=== PATIENT | male | born 1950 | race Caucasian/White ===

== ENCOUNTER 2023-11-18 21:37 | Inpatient (IN) | payer MEDICARE, BC, SELFPAY ==
[2023-11-18] VITALS (7 sets, daily range): BP systolic 131–167; BP diastolic 72–87; BMI 28.7
[2023-11-18 17:26] LABS: % Basophils 0.1 % (0-2); % Eosinophils 0.2 % (0-6); % Immature Granulocytes 0.3 % (0-0.5); % Monocytes 7.8 % (1.7-9.3); % Neutrophils 73.6 % (42.2-75.2); Absolute Lymphocytes 1.7 10^3/uL (1.2-3.4); Absolute Monocytes 0.7 10^3/uL (0.1-0.6); Absolute Neutrophils 6.9 10^3/uL (1.4-6.5); Hematocrit 39.5 % (39.0-52.0); Hemoglobin 14.2 g/dL (13.0-18.0); Mean Corp Hgb Conc. 35.9 g/dL (33.0-37.0); Mean Corpuscular Hgb 30.7 pg (27.0-31.0); Mean Corpuscular Volume 85.3 fL (80.0-94.0); Mean Platelet Volume 8.8 fL (7.4-10.4); Nucleated Red Blood Cells % 0 % (-); Platelet Count 221 10^3/uL (130-400); Red Blood Cell Count 4.63 10^6/uL (4.70-6.10); Red Cell Dist. Width 11.9 % (11.5-14.5); White Blood Cell Count 9.4 10^3/uL (4.8-10.8)
[2023-11-18 17:42] LABS: ALT (SGPT) 25 U/L (0-50); AST (SGOT) 37 U/L (17-59); Albumin 4.5 g/dl (3.5-5.0); Alkaline Phosphatase 75 U/L (38-126); Blood Urea Nitrogen 18 mg/dl (9-20); Carbon Dioxide 30 mmol/L (22-30); Chloride 100 mmol/L (98-107); Glucose 111 mg/dl (70-99); Potassium 4.8 mmol/L (3.5-5.1); Sodium 138 mmol/L (135-145); Total Bilirubin 0.7 mg/dl (0.2-1.3); Total Protein 7.1 g/dl (6.3-8.2); eGFR > 60.00
--- NOTE | 2023-11-18 19:30 | ED.GENMED ---
History of Present Illness
General
Chief Complaint: Chest Pain
Time Seen by Provider: 11/18/23 19:30
History of Present Illness
History of Present Illness:
HPI: Nearly 1 week ago, the patient started having a gas pain described as tightness in the chest. He initially thought it could have been diet/GI related. This lasted for a few days. Today, he had some diaphoresis. He has had no exertional
symptoms. He has never been to a stock sheets cleaner inspector other than maybe a stress test 'in my 20s'. Currently he has no discomfort.
EXAM:
GENERAL: Well appearing in no distress
HEENT: Moist oral mucosa
CARDIOVASCULAR: No murmurs, normal heart rate, regular rhythm, No chest wall tenderness
PULMONARY: No respiratory distress, breath sounds are clear and equal
ABDOMEN: Soft with no peritoneal signs, no tenderness
NEUROLOGIC: Excellent strength all extremities, no coordination deficits
PSYCHIATRIC: Appropriate mental status, normal insight and judgement
EXTREMITIES: Nontender, no edema, moves all extremities equally
SKIN: No rash, no lesions
TIME OF INITIAL ENCOUNTER: 7:45 PM
NUMBER AND COMPLEXITY OF PROBLEMS ADDRESSED AT THE ENCOUNTER
� Chronic conditions affecting care: Former smoker, high blood pressure, hyperlipidemia
� Acute Exacerbation and/or Progression of Chronic Illness: This is an acute problem
� Differential Diagnosis includes: ACS, GI etiology, GERD
AMOUNT AND/OR COMPLEXITY OF DATA TO BE REVIEWED AND ANALYZED
� I performed an independent evaluation of and my interpretation is:
EKG: Sinus 48, T wave inversion in lead III, AvF, V4, and V5
CT:
X-rays:
Laboratory Studies: CBC unremarkable, chemistries unremarkable, troponin 1.37 with no old to compare
Other:
� Review of other/old records: I reviewed records, the patient had a colonoscopy in 2017
� Clinical information was obtained by an independent historian: None needed
� Prescriptions/Medications Considered but not given:
� Further testing considered but not performed:
RISK OF COMPLICATIONS AND/OR MORBIDITY OR MORTALITY OF PATIENT MANAGEMENT
� Social determinants of health affecting care: Lives at home with
� Discussion with other providers: Notified Dr. Chadwick of the patient's presentation with abnormal cardiac findings; Dr. العراقي for admission at 7:50 PM
� Escalation of care including admission/observation vs risk of discharge considered: Given the T wave inversion on EKG along with elevated troponin, the patient was given aspirin and will start heparin. No nitroglycerin was
given as he remains chest discomfort free. He currently has no symptoms as of 7:50 PM.
Past History
Past History
ED Past Medical History: HTN and Hypercholesterolemia
ED Past Surgical History: Orthopedic
Social History
Tobacco: Former smoker
Living: with family
Employment: Employed
Phy Exam
Physical Exam
Physical Exam:
See HPI
Scores
Heart Score for Chest Pain Patients
STEMI patient?: Not applicable
Course
Orders/Labs/Results
Orders:
Orders
11/18/23 17:12
Electrocardiogram (*1) Urgent
Reason for Study: Chest Pain
EKG- Treatment ONCE
11/18/23 17:21
Complete Blood Count/With Diff Urgent
Comprehensive Metabolic Panel Urgent
Troponin I Urgent
11/18/23 19:47
Aspirin 325 mg PO NOW STA
Heparin 4,000 units IV NOW STA
11/18/23 19:[address] Non Medication Order As Directed
Physician Order: PTT 6 hours after initial start of Heparin infusion
Above order entered?: Yes
11/18/23 20:18
D-Dimer Urgent
Comment: ADD ON
PTT Urgent
Comment: Obtain baseline before beginning heparin infusion if not already collected
11/18/23 20:34
Admit/Transfer Patient As Directed
Co-Sign Provider:
Level of Care: Inpatient admission
Assign to:: IVU
Physician / Group: Malcom
Diagnosis: ACS
Reason for Hospitalization: ACS
Expected length of stay greater than two midnights?: Yes
ELOS- Estimated Length of Stay in days: 3
I certify the patient meets the requirements for IP care: Yes
PRN Pain Medication Management As Directed
May give lesser potent ordered pain med per pt: Yes
preference::
Protocol:: Medication orders for pain may be administered in a
manner that supports deferring to patient preference
when the pt is:
- Requesting an ordered lesser potent pain medication.
Least to most potent pain medications are defined
as: acetaminophen < NSAID < tramadol < opioids
(morphine, oxycodone, hydromorphone).
- Requesting a lesser dose of the same medication IF
ORDERED.
- Requesting a less intrusive route of administration
if both routes are prescribed by the provider (PO <
IV).
11/18/23 20:35
Code Status As Directed
Resuscitation Status: Full Code
11/18/23 21:30
Heparin 54439 Units/250 ml 25,000 units in 250 ml IV PER PROTOCOL
Weight to be used for heparin protocol in kilograms (kg):: 99
Protocol:: Cardiac Tx/Acute Coronary
PTT Goal Range to be used:: PTT 73 to 111 seconds
Order type:: Initial
INITIAL Infusion Dose (UNITS/KG/hr) & then follow protocol:: 12 units/kg/hr
Infusion Dose in UNITS/hr & then follow protocol (UNITS/hr):: 1,000
INFUSION RATE in mL/hr & then follow protocol (mL/hr):: 10
PTT less than or equal to 64 seconds:: Increase rate by 200 units/hr (+ 2 mL/hr)
PTT 64.1 to 72.9 seconds:: Increase rate by 100 units/hr (+ 1 mL/hr)
PTT 73 to 111 seconds:: Target Range. No change in rate.
PTT 111.1 to 130.9 seconds:: Decrease rate by 100 units/hr (- 1 mL/hr)
PTT 131 to 199.9 seconds:: HOLD for 1 hr. Then decrease rate by 200 units/hr (- 2 mL/hr)
PTT greater than or equal to 200 seconds:: HOLD for 2 hrs & Notify Provider. Then decrease by 200 units/hr (-
2 mL/hr)
Lab follow-up:: Each change, PTT q6h until 2 consecutive are therapeutic. Then PTT
daily.
Abnormal Lab Results
11/18/23 11/18/23
17:21 20:18
RBC 4.63 L 10^6/uL
(4.70-6.10)
Absolute Neuts (auto) 6.9 H 10^3/uL
(1.4-6.5)
Absolute Monos (auto) 0.7 H 10^3/uL
(0.1-0.6)
Lymphocytes % 18.0 L %
(20.5-51.1)
D-Dimer 0.55 H ug/mlFEU
(0.00-0.50)
Glucose 111 H mg/dl
(70-99)
Troponin I 1.370 H* ng/ml
11/18/23 17:21
11/18/23 17:21
Vital Signs
Initial and Last Documented VS:
Initial Vital Signs
Temp Pulse Resp BP Pulse Ox
98.3 F 59 16 167/85 99
11/18/23 17:10 11/18/23 17:10 11/18/23 17:10 11/18/23 17:10 11/18/23 17:10
Last Documented Vital Signs
Temp Pulse Resp BP Pulse Ox
98.3 F 52 23 167/85 95
11/18/23 17:10 11/18/23 19:00 11/18/23 19:00 11/18/23 17:10 11/18/23 19:00
*Critical Care Note
Total Time (30-74mins, 75-104mins- exclusive of procedures): Not Applicable
ED Attending Note
-
Portions of this chart may have been created with voice recognition software.� Occasional wrong word or��sound alike� substitutions may have occurred due to the inherent limitations of voice recognition software.
Discharge Plan
Departure
Patient Disposition: Admit
Date of Disposition: 11/18/23
Time of Disposition: 19:50
Presentation/result/management discussed w/ accepting MD/DO: Hospitalist
Discharge Problem:
Acute coronary syndrome with high troponin
Interventions
Interventions:
*Risk Screen - Suicide Last Done: 11/18/23 18:15
*General Assessment Last Done: 11/18/23 18:15
*Neglect/Abuse Screening Last Done: 11/18/23 18:15
ED- Fall Risk Assessment Last Done: 11/18/23 18:12
*ED COVID-19 Vaccine History Last Done: 11/18/23 18:15
ED- Cardiac Assessment Last Done: 11/18/23 18:12
[2023-11-18] MEDS: HEPARIN 4000 UNITS IV (20:15)
[2023-11-18] MEDS: ASPIRIN 325 MG PO (20:15)
[2023-11-18 20:34] LABS: APTT 28.2 Sec (23.4-35.0)
--- NOTE | 2023-11-18 20:45 | HPS.HSE ---
Addendum entered and electronically signed by Julio العراقي DO 11/18/23 22:01:
Addendum: D-Dimer is very minimally elevated (0.55). Fairly low suspicion of PE with no hypoxemia, tachycardia, etc. Despite recent history of air travel.
Patient is already on therapeutic heparin infusion - so additional testing will not change current management. Continue current treatment / evaluation as outlined below.
Can consider CTA chest, etc at later date if there is greater concern for possible PE.
Original Note:
Family Physician
-
Family Physician: CANDE Coe
Chief Complaint
-
Chest Pain
History of Present Illness
Patient is a 73y M with PMH significant for hypertension who presents to ED complaining of chest pain. Patient states that he first noted some chest discomfort on Wednesday 11/08. He went for a 5 mile hike and felt some discomfort or tightness in
his chest. He initially felt that this was due to indigestion / GI symptoms. He felt fairly well for the following weekend, but noted recurrent discomfort on Sunday and Sunday - specifically after meals. 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 He had no associated symptoms at that time; however, pain reached a peak of about 7/10. He had some intermittent / less severe discomfort over the next few days. He attempted to alter his
diet as he felt symptoms may be due to some food intolerance.
Today, patient had recurrent chest discomfort at home - this time accompanied by nausea, diaphoresis and pale appearance. He had a small, soft BM at home with no change in his symptoms.
He presented to the ED for further evaluation. Currently he is resting comfortably. His chest tightness is much improved - though not fully resolved - currently a 1/10.
Patient denies any prior history of similar symptoms.
Of note: he and his recently returned from a trip to [place] for vacation. Their return flight was 11/05.
Medical History
Past Medical History
Past Medical History: Reports Other
Additional Past Medical History:
Hypertension
Dyslipidemia
Past Surgical History: Reports Other
Additional Past Surgical History:
T&A
Mole Excision
Social History
Tobacco: Smoker (Current some day smoker (very rare pipe or cigar).)
Alcohol: Occasional
Drug: None
Personal:
Living: With Family
Family History
Family History: Other (Mother: PPM, Lung Cancer Father: Lung Cancer, Melanoma)
Allergies / Home Medications
Allergies reflects when Allergies were last updated in [employer].
Home Medications with original date entered in [employer]
Allergy/Medication List:
Allergies
Allergy/AdvReac Type Severity Reaction Status Date / Time
Penicillins Allergy Unknown Verified 11/18/23 17:10
Home Medications
amlodipine 5 mg tablet (Norvasc) 5 mg PO DAILY 11/18/23
cholecalciferol (vitamin D3) 25 mcg (1,000 unit) tablet (Vitamin D3) 25 mcg PO DAILY 11/18/23
losartan 25 mg tablet 25 mg PO DAILY 11/18/23
pravastatin 10 mg tablet 10 mg PO HS 11/18/23
Review of Systems
-
History Source: Patient
A 12 point ROS was completed and negative except as noted: Yes
Constitutional: Denies Fever or Chills
Respiratory: Denies Cough or Trouble Breathing
Cardiac: Reports Chest Pain and Diaphoresis; Denies Palpitations or Syncope
Abdomen/GI: Reports Nausea; Denies Abdominal Pain, Vomiting, Diarrhea or Constipated
: Denies Dysuria, Frequency or Flank Pain
Musculoskeletal: Denies Joint Pain or Edema
Neurological: Denies Dizzy or Headache
Psych: Denies Depression or Anxiety
Physical Exam
Vital Signs
Vital Signs
Temp Pulse Resp BP Pulse Ox
98.3 F 52 23 167/85 95
11/18/23 17:10 11/18/23 19:00 11/18/23 19:00 11/18/23 17:10 11/18/23 19:00
Physical Exam
General: Other (73y M in no acute distress.)
HEENT: Moist mucous membranes and PERRLA
Respiratory: Clear; No Wheezes, Rales or Rhonchi
Cardiac: S1/S2 and Bradycardia; No Murmur
GI: Soft, Non Tender, Non Distended and Normal Bowel Sounds
Musculoskeletal: No Clubbing, No Cyanosis and No Edema
Neuro: AO x 3
Laboratory Results
-
11/18/23 17:21
11/18/23 17:21
Laboratory Results
APTT 28.2 Sec (23.4-35.0) 11/18/23 20:18
Total Bilirubin 0.7 mg/dl (0.2-1.3) 11/18/23 17:21
AST 37 U/L (17-59) 11/18/23 17:21
ALT 25 U/L (0-50) 11/18/23 17:21
Alkaline Phosphatase 75 U/L (38-126) 11/18/23 17:21
Troponin I 1.370 ng/ml H* 11/18/23 17:21
Impression/Plan
-
A/P: Patient is a 73y M with PMH significant for hypertension who presents to ED complaining of chest pain.
Chest Tightness
ACS
- Admit for further evaluation and treatment.
- Symptoms seem likely due to ACS based on history, risk factors, elevated troponin.
- EKG with non-specific ST-T changes - no prior for comparison.
- IV heparin infusion. IV NTG gtt and titrate until pain-free.
- ASA daily. Increase to high intensity statin.
- Follow serial troponin to peak.
- Cardiology consult - for probable ischemic evaluation.
- Follow for any new / worsening symptoms.
- Given recent [place], will also rule out PE. Though patient is not hypoxemic, tachycardic, etc.
- D-Dimer ordered - if positive will add CTA Chest.
Benign Hypertension
- BP somewhat elevated in the ED in the setting of chest discomfort / acute illness.
- Hold amlodipine acutely. Continue losartan with holding parameters.
- IV NTG gtt for now as noted above.
- Adjust med regimen prior to discharge for goal of normotension.
DVT Prophylaxis: On IV Heparin
Code Status: Full
[2023-11-18] MEDS: HEPARIN 25000 UNITS/250 ML IV (21:49)
[2023-11-18 21:57] LABS: D-Dimer 0.55 ug/mlFEU (0.00-0.50)
--- NOTE | 2023-11-18 22:30 | PTCARENOTE ---
Rec'd pt from ER via stretcher on monitor & Hep gtt at 1000 units, pt oriented to IVU routine, Painfree, Pt instructed to call nurse if develops any discomfort,Per Dr العراقي- 'only start the NTG gtt if pt has CP', SR, bp stable, + pulses, no edema,
RA, sat 98, lungs clear, + bowel sounds, no bm, abd soft, nontender, npo except meds, Urinal at bedside
[2023-11-19] VITALS (17 sets, daily range): BP systolic 118–166; BP diastolic 67–98; BMI 28.7
[2023-11-19 04:43] LABS: Blood Urea Nitrogen 15 mg/dl (9-20); Calcium 9.5 mg/dl (8.4-10.2); Carbon Dioxide 26 mmol/L (22-30); Chloride 101 mmol/L (98-107); Estimated Creatinine Clearance 106 ml/min; Glucose 114 mg/dl (70-99); HDL Cholesterol 57 mg/dl; LDL Cholesterol, Calculated 107 mg/dl; Potassium 4.5 mmol/L (3.5-5.1); Sodium 137 mmol/L (135-145); Total Cholesterol 175 mg/dl (50-199); Triglyceride 57 mg/dl (10-149); Very Low Density Lipoprotein 11 mg/dl (0-30); eGFR > 60.00
--- NOTE | 2023-11-19 04:56 | PTCARENOTE ---
ptt 49, hep gtt incr to 1200 units/hr per protocal
--- NOTE | 2023-11-19 07:41 | CON.CAR ---
Addendum entered and electronically signed by Marta Kaur DO 11/19/23 10:00:
I saw and examined the patient.
The Rubber Tubing Splicer's note was reviewed and I agree with the note.
Comment: Patient seen and examined with cardiac PA. 73 year old male with h/o HTN and hyperlipidemia since age 20s on pravastatin and hypertension but who is otherwise been healthy with no prior cardiac evaluation. He is a lifelong non-smoker. No
family history of premature coronary artery disease. He reports new episode of exertional chest tightness/indigestion which started on Sunday while he was walking in [place] with his . He was able to complete a 5 mile walk with
intermittent symptoms throughout. Symptoms resolved with rest. Over this past week he has had recurrent episodes during exercise/exertion. He describes the symptoms as indigestion-like and thought they were due to his diet. Symptoms resolved with
rest. 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 Last night he developed a cold sweat, nausea, pallor after preparing dinner and went to the ER.
Troponin initially 1.3 and EKG showing NSR with T wave inversions inferior leads and V5-V6. He was started on Heparin gtt and ASA. Repeat troponin up to 5.6 this morning. Pt currently chest pain-free.
General: No acute distress, AAOX3
Neck: Negative JVD
Heart: Regular, Negative S3 positive S1/S2, Negative S4, No murmur
Lungs: CTA b/l, negative wheezes/rales/rhonchi
Abd: Positive BS, NT/ND, neg rebound/rigidity/guarding
Ext: Negative cyanosis/clubbing/edema
Neuro: nonfocal
Plan:
Non-STEMI
-Currently chest pain-free
-Continue IV heparin with plan for left heart catheterization today
-Trend CTNI
-Check 2D echocardiogram
-Lipid profile suboptimal on pravastatin. Changed to high intensity atorvastatin
-Goal normotension
-Hyperglycemia�check hemoglobin A1c
Addendum entered and electronically signed by CANDE Matta 11/19/23 08:29:
.
Original Note:
Consultation
Consultation Request
Date/Time Consultation Requested: 11/18/23
Date/Time Consultation Performed: 11/19/23 0730
Requesting Provider: Julio العراقي DO
Performing Provider: CANDE Matta for Marta DO Myesha
Reason for Consultation: chest pain, elevated troponin
Medical History
-
Chief Complaint: chest pain, indigestion
History of Present Illness:
73 year old male with h/o HTN and hyperlipidemia since age 22s who developed chest pain with exertional activities one week ago. Symptoms first occurred during a 5 mile walk one week ago. He describes the symptoms as indigestion-like and thought
they were due to his diet. Symptoms resolved with rest. 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 Last night he developed a cold sweat, nausea, pallor
after preparing dinner and went to the ER. Troponin initially 1.3 and EKG showing NSR with T wave inversions inferior leads and V5-V6. He was started on Heparin gtt and ASA. Repeat troponin up to 5.6 this morning. Pt currently chest pain-free.
PMH:
HTN
hyperlipidemia
Past Medical History
Past Medical History: Other (as above)
Social History
Tobacco: Former Smoker (cigars and pipe smoker, quit 10 yrs ago)
Alcohol: Occasional
Personal:
Living: With Family
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)
Family History
Family History: Other (father with 'heart problems' 60s [place], mother with pacemaker, 60s from [place])
Allergies / Home Medications
Allergy/AdvReac Type Severity Reaction Status Date / Time
Penicillins Allergy Unknown Verified 11/18/23 17:10
�Medication �Instructions �Recorded �Confirmed �Type
amlodipine 5 mg tablet (Norvasc) 5 mg PO DAILY 11/18/23 11/18/23 History
cholecalciferol (vitamin D3) 25 25 mcg PO DAILY 11/18/23 11/18/23 History
mcg (1,000 unit) tablet (Vitamin
D3)
losartan 25 mg tablet 25 mg PO DAILY 11/18/23 11/18/23 History
pravastatin 10 mg tablet 10 mg PO HS 11/18/23 11/18/23 History
Review of Systems
-
History Source: Patient
All other systems: Negative unless noted
Physical Exam
Vital Signs
Temp Pulse Resp BP Pulse Ox
98.7 F 52 18 158/86 98
11/19/23 03:54 11/19/23 06:00 11/19/23 03:54 11/19/23 06:00 11/19/23 06:00
Lab Results
11/18/23 17:21
11/19/23 03:49
Troponin I 5.620 ng/ml H* D 11/19/23 03:49
GEN: No distress, awake, Ox3
HEENT: supple, anicteric, mmm
LUNGS: CTA, no wheezes/rales
CV: Reg, S1/S2, no murmur
ABD: soft, BS+, NT/ND
EXT: No edema
NEURO: Gross non-focal
SKIN: No rash
Impression / Plan
-
PCP:Rosa Maria Frazier
Impression:
NSTEMI
CP w/ exertion x 1 week
troponin trending up
HTN-on Losartan and Amlodipine
hyperlipidemia, LDL 107 on Pravastatin
hyperglycemia
EKG personally reviewed: 11/18/23 1718: SB T wave inversions II, III, V4-V6. Repeat 11/19/23 0600: NSR biphasic T waves III, aVF, TWI V5-V6
telemetry personally reviewed: NSR, 6 beat NSVT
Plan:
will need ischemic evaluation
NPO
continue heparin
ASA
trend troponins to peak
check echo
change to high intensity statin
check HgbA1c
continue outpatient antihypertensives-Losartan, Amlodipine
Data Reviewed
-
EKG: Tracing Personally Visualized and interpreted
[2023-11-19] MEDS: PROTONIX IV 40 MG IV (07:43)
[2023-11-19] MEDS: COZAAR 25 MG PO (07:44)
[2023-11-19] MEDS: NSS (PRESERVATIVE FREE) 10 ML IV (07:45)
[2023-11-19] MEDS: LOW STRENGTH ASPIRIN 81 MG PO (10:08)
[2023-11-19 11:22] LABS: APTT 53.2 Sec (23.4-35.0)
--- NOTE | 2023-11-19 12:46 | CM ---
Chart reviewed. Patient is independent of ADLS, lives with his in a 2 [address], 2 SANDRA, 0 DME. Patient going for a LHC today. Patient currently with no discharge needs. CM to follow
--- NOTE | 2023-11-19 13:01 | PTCARENOTE ---
Patient sent to the orthodontic laboratory technician in the bed, voided pre-procedure
[2023-11-19 14:05] LABS: ACT-LR - POC 215 Seconds (116-155)
[2023-11-19 14:14] LABS: ACT-LR - POC 368 Seconds (116-155)
[2023-11-19 14:35] LABS: ACT-LR - POC 248 Seconds (116-155)
--- NOTE | 2023-11-19 14:43 | ITS.CL.CATH ---
Director Of Casino - Catheterization
Cardiac Catheterization
Procedure Report:
LEFT HEART CATH AND CORONARY INTERVENTION
Date of Procedure: November 19, 2023
Referring: Dr. Marta Kaur
PROCEDURES:
1. Left heart catheterization with coronary and single-plane left ventriculography
2. Successful stenting of 100% occluded mid right coronary artery with a 3.0 x 26 mm Luther stent that was implanted at nominal pressures then postdilated to high pressures with a 3.5 mm noncompliant balloon
INDICATION: This is a 73-year-old gentleman with a past medical history notable for hypertension and hyperlipidemia who reported the onset of exertional chest tightness that was quite severe while he was walking at [facility] with his .
He completed the 5 mile walk with intermittent symptoms throughout. His chest discomfort resolved with rest. Over the past week he experienced recurring episodes of chest tightness with symptoms occurring at rest on the evening of admission. His
troponin initially measured 1.3 ng/mL. He was chest pain-free. His troponin continued to increase slightly currently measuring 6.61 ng/mL. He has remained chest pain-free. He is now referred for coronary angiography. An echocardiogram
precatheterization was notable for preserved left ventricular systolic function
ACCESS: Right radial artery 6 Ghanaian sheath
HEMODYNAMICS (mmHg):
AO (s/d, m) : 144/78, 106
LV (s/d) : 143/8
LVEDP : 20
CORONARY FINDINGS
Dominance: Right
LEFT MAIN: Short and unobstructed
LEFT ANTERIOR DESCENDING: The LAD arises normally from the left main and runs in the anterior interventricular groove. The proximal LAD is a large-caliber vessel. There is a irregular 70-80% stenosis in the proximal-mid LAD near the origin of a
large first septal color artist and small first diagonal branch. The mid LAD has luminal irregularities. The LAD beyond the third diagonal branch has a 40-50% stenosis. The distal vessel becomes quite tortuous and wraps completely around the apex.
CIRCUMFLEX: The circumflex is a medium caliber nondominant vessel with a 50% stenosis in its midportion just before the bifurcation of the circumflex to a large OM1 and OM 2
RIGHT CORONARY: The right coronary artery is a dominant vessel that is noted to be 100% occluded in its midportion. The distal vessel fills via well-developed zliy-[id number] collaterals that fill retrograde and are suggestive of a very short
occluded segment
VENTRICULOGRAPHY: Left ventriculography was performed in an REID projection. The digital single-plane left ventricular ejection fraction is estimated at 60% with posterior basal hypokinesis
ANGIOPLASTY PROCEDURE DETAIL: After review of the diagnostic images and the echocardiogram the decision was made to proceed with percutaneous revascularization of the 100% occluded mid RCA suspecting a large area of viable myocardium given normal
LVEF by ventriculogram and by echocardiogram. Intravenous heparin was administered and the origin of the RCA was cannulated with a 6 Ghanaian JR4 guiding catheter. The occluded segment in the mid RCA proved difficult to cross with a BMW guidewire.
With a little luck the wire did pop across the occluded segment and was advanced to the distal RCA. The tip of the wire could be freely rotated confirming intravascular location of the wire tip. Balloon predilation was performed with a 2.0 x 15 mm
Euphora balloon and was followed by placement of a 3.0 x 26 mm Chappells stent that was implanted at nominal pressures then postdilated with a 3.5 mm noncompliant balloon at 8 eden on the distal edge of the stent and 16-18 eden in the mid and proximal RCA
stent.
RADIATION SUMMARY: Fluoro Time (min): 11.8, Dose (mGy): 1127, DAP (Gy.cm2) : 83.2
CONCLUSIONS
1. Probable recent 100% occlusion of the mid right coronary artery with a distal vessel filling via [id number] collaterals. Successful angioplasty and stenting of the occluded mid RCA with a 3.0 x 26 mm Chappells stent that was postdilated with a
3.5 mm noncompliant balloon to high pressures
2. Residual coronary disease involving the proximal-mid LAD
3. Preserved left ventricular systolic function
RECOMMENDATIONS
1. Uninterrupted dual antiplatelet therapy for 12 months
2. Patient should return for hemodynamic assessment of the mid LAD with probable stenting of the mid LAD if the stenotic segment is found to be hemodynamically significant
3. High intensity statin therapy
4. Secondary risk modification
Copy to: Dr. Marta Kaur
--- NOTE | 2023-11-19 14:55 | PTCARENOTE ---
Patient received from the senior cytogenetics laboratory director, right radial band intact, POX 98%. Awake and alert. Ordering his lunch. VSS, NSR, call richards in reach
--- NOTE | 2023-11-19 15:16 | W.PN.HOSP.TC ---
Today's Communication/Plan
-
lhc today
DAPT, statin
anticipate starting BB after LHC
hsq after cath
Assessment / Plan
Assessment / Plan
General: Other (73y M in no acute distress.)
HEENT: Moist mucous membranes and PERRLA
Respiratory: Clear; No Wheezes, Rales or Rhonchi
Cardiac: S1/S2 and Bradycardia; No Murmur
GI: Soft, Non Tender, Non Distended and Normal Bowel Sounds
Musculoskeletal: No Clubbing, No Cyanosis and No Edema
Neuro: AO x 3
A/P: Patient is a 73y M with PMH significant for hypertension who presents to ED complaining of chest pain.
Chest Tightness
ACS
NSTEMI
Hyperlipidemia
� Currently chest pain-free, although presented with chest pressure throughout the week
� Continue IV heparin
� Echo with no wall motion abnormality, EF 60%
� Change atorvastatin
� Anticipate left heart catheterization today
� D-dimer mildly elevated, doubt PE at this time, not hypoxic, nor tachycardic and with elevated troponins and symptoms, suspect ACS versus less likely PE. If no coronary disease, then can plan for CTA
-NTG as needed
-DAPT
Benign Hypertension
- Hold amlodipine acutely.
- Cont Continue losartan with holding parameters.
-anticipate starting further meds s/p cath
DVT Prophylaxis: On IV Heparin; hsq thereafter
Code Status: Full
Total time spent on today's encounter was 50 minutes which included time spent in counseling the patient/family regarding diagnosis and treatment plan as listed above, goals of care, and symptom management. Case was discussed with nursing staff,
specialists, and care coordinators/case management. All labs and imaging personally reviewed by me. Remainder the time spent in detailed review of previous records, lab data, imaging, and other medical provider documentation.
Anticipated Discharge: Within 24 hours
Subjective/Interval History
-
Date of Service: November 19, 2023
No acute events overnight
Objective Data
-
Labs:
Laboratory Results
11/19/23 11/19/23 11/19/23
03:30 03:49 10:57
APTT Cancelled 49.0 H 53.2 H
Sodium 137
Potassium 4.5
Chloride 101
Carbon Dioxide 26
BUN 15
Creatinine 0.7
Glucose 114 H
Calcium 9.5
11/19/23
17:30
APTT Pending
Sodium
Potassium
Chloride
Carbon Dioxide
BUN
Creatinine
Glucose
Calcium
Vital Signs:
Vital Signs
Temp Pulse Resp BP Pulse Ox
98.2 F 51 20 141/77 98
11/19/23 12:12 11/19/23 15:00 11/19/23 12:12 11/19/23 15:00 11/19/23 12:12
I&O
11/18/23 11/19/23 11/20/23
06:59 06:59 06:59
Intake Total 82 / 82
Output Total 200 / 200
Balance -118 / -118
Review of Systems
-
History Source: Patient
All other systems: Not reviewed unless documented
Data Reviewed
-
Medical Tests (Nuc Med, Echo etc): Report Reviewed by me
Labs: Labs Reviewed by me
--- NOTE | 2023-11-19 15:38 | CM ---
Pricing on Brilinta through the patient's PP is $45 a month. I placed a free 30 day coupon in the patients red discharge folder. Patient is agreeable to cost
[2023-11-19] MEDS: HEPARIN SC (16:20)
[2023-11-19] MEDS: LIPITOR 40 MG PO (19:08)
--- NOTE | 2023-11-19 21:48 | PTCARENOTE ---
received patient at the change of shift. AAOx3. denies any cp/sob. SR on tele- HR 60s. patient had, which appears to be, a burst of Sinus tach on tele at 1930. HR returned to SR 60s. denies any symptoms. Removed Right radial band-applied gauze/teg.
+ pulse. reviewed plan of care with patient and verbalized understanding. NPO at midnight for a cardiac cath in AM. independent in the room. call richards within reach.
[2023-11-19] MEDS: HEPARIN 5000 UNITS SC (23:30)
[2023-11-20] VITALS (14 sets, daily range): BP systolic 117–145; BP diastolic 70–96; BMI 28.5
[2023-11-20 04:31] LABS: Hematocrit 39.5 % (39.0-52.0); Hemoglobin 13.9 g/dL (13.0-18.0); Mean Corp Hgb Conc. 35.2 g/dL (33.0-37.0); Mean Corpuscular Hgb 31.2 pg (27.0-31.0); Mean Corpuscular Volume 88.6 fL (80.0-94.0); Mean Platelet Volume 9.3 fL (7.4-10.4); Platelet Count 193 10^3/uL (130-400); Red Blood Cell Count 4.46 10^6/uL (4.70-6.10); White Blood Cell Count 9.7 10^3/uL (4.8-10.8)
[2023-11-20 04:49] LABS: Blood Urea Nitrogen 14 mg/dl (9-20); Calcium 9.2 mg/dl (8.4-10.2); Carbon Dioxide 27 mmol/L (22-30); Chloride 101 mmol/L (98-107); Estimated Creatinine Clearance 106 ml/min; Glucose 97 mg/dl (70-99); Potassium 4.6 mmol/L (3.5-5.1); Sodium 137 mmol/L (135-145); eGFR > 60.00
[2023-11-20] MEDS: COZAAR 25 MG PO (08:09)
[2023-11-20] MEDS: BRILINTA 90 MG PO ×2 (08:09→20:03)
[2023-11-20] MEDS: LOW STRENGTH ASPIRIN 81 MG PO (08:10)
[2023-11-20] MEDS: HEPARIN 5000 UNITS SC ×2 (08:10→22:56)
[2023-11-20] MEDS: PROTONIX IV 40 MG IV (08:11)
[2023-11-20] MEDS: NSS (PRESERVATIVE FREE) 10 ML IV (08:11)
--- NOTE | 2023-11-20 08:28 | W.CARD.POSTP ---
Post PCI Follow Up
Procedure
Procedure/Date: 11/19/23- s/p angioplasty and stenting of occluded mRCA w/MILLI
residual irregular 70-80% stenosis in the proximal-mid LAD
Subjective: denies cp/palps/dyspnea
radial cath site without pain
Site
Site: Radial: Right and No ht/bleeding, distal pulses palpable
Tele / EKG
SB/SR 50-60s, inferolateral TWI
Labs
11/20/23 04:15
11/20/23 04:15
APTT Cancelled 11/19/23 18:25
Magnesium 2.0 mg/dl (1.6-2.3) 11/20/23 04:15
Triglycerides 57 mg/dl (10-149) 11/19/23 03:49
LDL Cholesterol, Calc 107 mg/dl 11/19/23 03:49
VLDL Cholesterol, Calc 11 mg/dl (0-30) 11/19/23 03:49
HDL Cholesterol 57 mg/dl 11/19/23 03:49
Laboratory Tests
11/18/23 11/18/23 11/19/23
17:21 23:06 03:49
Troponin I 1.370 H* 3.480 H* D 5.620 H* D
11/19/23 11/19/23 11/20/23
10:57 18:24 04:15
Troponin I 6.610 H* 15.200 H* D 10.100 H*
DAPT Medication
DAPT Medication: Aspirin 81mg daily and Tricagrelor 90 mg BID
Case Management checking howe: Yes
Plan
NSTEMI w/peak troponin 15.2
s/p mRCA ptca/milli
residual p-mLAD- for staged procedure 11/20/23- likely IFR and if flow limiting will proceed with stenting.
Brilinta- see CM note, $45/month and pt agreeable to cost, rx sent to pharmacy
Stop pravastatin- will be on lipitor 40mg/daily- rx sent to pharmacy
cardiac rehab consulted
cardiology followup- 12/11 @10:40 w/LOVE Piña
--- NOTE | 2023-11-20 10:35 | PTCARENOTE ---
Rec'd pt at change of shift on TELE monitor in sinus bradycardia, with VSS, and AAAO*3. Pt maintained NPO since midnight for possible heart cath today. Pt denies any pain or discomfort and resting in bed with call richards in reach.
--- NOTE | 2023-11-20 11:24 | CM ---
Chart reviewed. Patient is independent of ADLS, lives with his in a 2 [address], 2 SANDRA, 0 DME. Plan is for the patient to return home. CM to follow
--- NOTE | 2023-11-20 13:27 | ITS.CL.CATH ---
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
Cardiac Catheterization
Procedure Report:
LEFT HEART CATHETERIZATION
Date of Procedure: November 20, 2023
Referring: Dr. Rc Najera
PROCEDURES:
1. Left heart catheterization with coronary angiogram.
2. Functional physiologic testing using IFR of proximal-mid LAD.
3. Ultrasound-guided access
INDICATION: Patient is a 73-year-old gentleman with a past medical history notable for hypertension and hyperlipidemia who reported the onset of exertional chest tightness found to have an NSTEMI due to 100% occlusion in the mid RCA status post
drug-eluting stent yesterday who is being brought back to the heart catheterization lab for possible IFR guided PCI to proximal/mid LAD for complete revascularization. He is currently on daily baby aspirin and Brilinta 90 mg twice daily.
ACCESS: Right radial artery, 6 Spanish sheath, under US guidance
HEMODYNAMICS (mmHg):
AO (s/d, m) : 135/75, 100
LV (s/d) : 136/9
LVEDP : 17
CORONARY FINDINGS
Dominance: Right
LEFT MAIN: The left main artery is short and otherwise large in caliber which gives rise to the left anterior descending artery and the left circumflex artery. There is minimal luminal irregularities.
LEFT ANTERIOR DESCENDING: The LAD arises normally from the left main and runs in the anterior interventricular groove. The proximal LAD is a large-caliber vessel. There is an eccentric 70% stenosis in the proximal-mid LAD near the origin of a
large first septal plastic die maker apprentice and small first diagonal branch. The mid LAD has luminal irregularities. The LAD beyond the third diagonal branch has a 40-50% stenosis. The distal vessel becomes quite tortuous and wraps completely around the apex.
iFR was performed across a 70% stenosis which was negative at 0.95.
CIRCUMFLEX: The circumflex is a medium caliber nondominant vessel with a 50% stenosis in its midportion just before the bifurcation of the circumflex to a large OM1 and OM 2
RIGHT CORONARY: The right coronary artery is a dominant vessel with recently placed mid RCA stent which is widely patent.
HEMODYNAMIC ASSESSMENT OF THE PROX-MID LAD WITH A VERRATA WIRE: The origin of the left coronary artery was cannulated with a 6 Fr EBU 3.75 guide catheter. Intravenous heparin was administered and the ACT was followed during the procedure. Two
hundred micrograms of intracoronary nitroglycerin was given through the guide catheter. A VERRATA wire was advanced to the guide catheter tip and normalized just outside the guide catheter tip. The VERRATA wire was then carefully manipulated
across the stenosis in the mid with the iFR above the ischemic threshold serially measuring 0.95, 0.96, 0.96. The VERRATA wire was then pulled back to the guide catheter where the Pd/Pa measured 1.0 confirming no baseline drift in pressure
readings.
RADIATION SUMMARY: Fluoro Time (min): 4.1, Dose (mGy): 267.8, DAP (Gy.cm2) : 18.5
CONCLUSIONS
1. IFR negative (iFR 0.95) 70% proximal to mid LAD stenosis.
2. Widely patent mid RCA stent that was recently placed.
3. Elevated LVEDP at 17 mmHg.
RECOMMENDATIONS
1. Uninterrupted dual antiplatelet therapy with daily baby aspirin and Brilinta for at least 12 months.
2. High intensity statin therapy.
3. Wean radial band per protocol.
4. Aggressive management of cardiovascular risk factors.
5. Outpatient referral for cardiac rehab
Radha Montemayor MD, FACC, [facility]
[2023-11-20 14:09] LABS: ACT-LR - POC 240 Seconds (116-155)
[2023-11-20 14:16] LABS: ACT-LR - POC 232 Seconds (116-155)
[2023-11-20] MEDS: LASIX 20 MG IV (14:47)
--- NOTE | 2023-11-20 15:26 | W.PN.HOSP.TC ---
Today's Communication/Plan
-
possible staged PCI today depending on ffr
Assessment / Plan
Assessment / Plan
General: Other (73y M in no acute distress.)
HEENT: Moist mucous membranes and PERRLA
Respiratory: Clear; No Wheezes, Rales or Rhonchi
Cardiac: S1/S2 and Bradycardia; No Murmur
GI: Soft, Non Tender, Non Distended and Normal Bowel Sounds
Musculoskeletal: No Clubbing, No Cyanosis and No Edema
Neuro: AO x 3
A/P: Patient is a 73y M with PMH significant for hypertension who presents to ED complaining of chest pain.
Chest Tightness
ACS
NSTEMI
Hyperlipidemia
� Currently chest pain-free, although presented with chest pressure throughout the week
- peak trop 15.2
-s/p mRCA ptca/milli
-Cont DAPT
-ARB
-Possible PCI today of p-mLAD
� Echo with no wall motion abnormality, EF 60%
� Change to atorvastatin
� D-dimer mildly elevated, doubt PE at this time, not hypoxic, nor tachycardic and with elevated troponins and symptoms, suspect ACS versus less likely PE.
-NTG as needed
-DAPT
-Cardiac rehab
-Cards f/u
Benign Hypertension
- Hold amlodipine acutely.
- Cont Continue losartan with holding parameters.
DVT Prophylaxis: HSQ
Code Status: Full
Total time spent on today's encounter was 51 minutes which included time spent in counseling the patient/family regarding diagnosis and treatment plan as listed above, goals of care, and symptom management. Case was discussed with nursing staff,
specialists, and care coordinators/case management. All labs and imaging personally reviewed by me. Remainder the time spent in detailed review of previous records, lab data, imaging, and other medical provider documentation.
Anticipated Discharge: Within 24 hours
Subjective/Interval History
-
Date of Service: November 20, 2023
s/p mRCA ptca/milli
Objective Data
-
Labs:
Laboratory Results
11/20/23
04:15
WBC 9.7
Hgb 13.9
Hct 39.5
Plt Count 193
Sodium 137
Potassium 4.6
Chloride 101
Carbon Dioxide 27
BUN 14
Creatinine 0.7
Glucose 97
Calcium 9.2
Vital Signs:
Vital Signs
Temp Pulse Resp BP Pulse Ox
98.4 F 64 16 134/79 99
11/20/23 11:00 11/20/23 14:47 11/20/23 11:00 11/20/23 14:47 11/20/23 11:53
I&O
11/19/23 11/20/23 11/21/23
06:59 06:59 06:59
Intake Total 82 / 82 798 / 798
Output Total 200 / 200
Balance -118 / -118 798 / 798
Review of Systems
-
History Source: Patient
All other systems: Not reviewed unless documented
Data Reviewed
-
Medical Tests (Nuc Med, Echo etc): Report Reviewed by me
Labs: Labs Reviewed by me
[2023-11-20] MEDS: LIPITOR 40 MG PO (17:16)
[2023-11-21 05:00] VITALS: BP 150/81
--- NOTE | 2023-11-21 05:18 | PTCARENOTE ---
Right radial site intact. Pt with no c/o pain this morning. Sinus on telemetry.
[2023-11-21 05:25] LABS: Hematocrit 38.5 % (39.0-52.0); Hemoglobin 13.9 g/dL (13.0-18.0); Mean Corp Hgb Conc. 36.1 g/dL (33.0-37.0); Mean Corpuscular Hgb 30.8 pg (27.0-31.0); Mean Corpuscular Volume 85.2 fL (80.0-94.0); Mean Platelet Volume 9.2 fL (7.4-10.4); Platelet Count 196 10^3/uL (130-400); Red Blood Cell Count 4.52 10^6/uL (4.70-6.10); White Blood Cell Count 8.1 10^3/uL (4.8-10.8)
[2023-11-21 05:54] LABS: Blood Urea Nitrogen 16 mg/dl (9-20); Calcium 9.3 mg/dl (8.4-10.2); Carbon Dioxide 28 mmol/L (22-30); Chloride 101 mmol/L (98-107); Estimated Creatinine Clearance 106 ml/min; Glucose 99 mg/dl (70-99); Potassium 4.1 mmol/L (3.5-5.1); Sodium 138 mmol/L (135-145); eGFR > 60.00
[2023-11-21 07:38] VITALS: BP 161/90
[2023-11-21] MEDS: NSS (PRESERVATIVE FREE) 10 ML IV (07:55)
[2023-11-21] MEDS: COZAAR 25 MG PO (07:55)
[2023-11-21] MEDS: HEPARIN 5000 UNITS SC (07:55)
[2023-11-21] MEDS: PROTONIX IV 40 MG IV (07:55)
[2023-11-21] MEDS: BRILINTA 90 MG PO (07:56)
[2023-11-21] MEDS: LOW STRENGTH ASPIRIN 81 MG PO (07:56)
--- NOTE | 2023-11-21 09:21 | PTCARENOTE ---
Assumed care at 0700. Patient up walking in room, ate breakfast in chair, SR/SB on telemetry. Denies pain, right radial cath site CDI, denies pain, call richards in reach
--- NOTE | 2023-11-21 10:03 | W.PN.CARDCBS ---
Addendum entered and electronically signed by Radha Montemayor MD 11/21/23 13:54:
I saw and examined the patient.
The Compliance Attorney's note was reviewed and I agree with the note.
Comment: Patient is doing well and does not offer any significant complaints this morning no issues at the right radial access site. He has been ambulating within the room without any complaints.
Vital signs and lab work reviewed. No significant events on telemetry. On exam patient is well-appearing, out of bed into a chair, is at bedside, normal S1 and S2, no murmurs, rubs or gallops, alert, oriented x 3, lungs are clear to
auscultation bilaterally, dressing is in place over the right radial access site without evidence of bruit or hematoma, abdomen is soft, nontender, nondistended with active bowel sounds, warm extremities without significant edema.
Recommendations:
1. Patient is status post RCA PCI with plan for uninterrupted dual antiplatelet therapy with daily baby aspirin and Brilinta along with high intensity statin. No beta-luis given baseline bradycardia.
2. His 70% proximal to mid LAD was assessed yesterday using IFR which was negative and therefore plan for aggressive medical therapy.
3. Continue other cardiac medications
4. Patient is otherwise stable for discharge and we will set up outpatient cardiology follow-up.
5. Outpatient referral for cardiac rehab.
Radha Montemayor MD, [facility], [facility]
Original Note:
Today's Communication / Plan
-
Status post RCA PCI. Residual LAD iFR negative
Continue aspirin, Brilinta, Lipitor, Cozaar, Norvasc
Cardiac rehab
Outpatient cardiac follow-up arranged
Okay for discharge
Impression / Plan
-
PCP:Rosa Maria Frazier
Impression:
NSTEMI s/p RCA PCI, residual 70% LAD stenosis, iFR negative by cath 11/20/23
CP w/ exertion x 1 week
HTN
hyperlipidemia
hyperglycemia with hgbA1c 5%
sinus bradycardia
ECHO 11/19/23: EF 60 to 65%, no regional wall motion abnormalities, mild MR, trace TR
Plan:
-Patient presented with exertional chest discomfort and ruled in for NSTEMI with peak troponin of 15
-Status post culprit RCA PCI 11/18. He then returned to the [facility] 11/20/2023 for assessment of 70% LAD stenosis, IFR negative. Plan for medical management
-Continue aspirin, Brilinta
-Outpatient pravastatin was transitioned to Lipitor
-in SR/SB on review of tele overnight. no BB due to baseline bradycardia
-Continue outpatient Cozaar. Outpatient Norvasc resumed today due to elevated blood pressures
-Cardiac rehab
-Echocardiogram results as above, reviewed with patient and family at bedside today
-Outpatient cardiac follow-up arranged
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
-Okay for discharge to home today from cardiac standpoint
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
Subjective
Date of Service: November 21, 2023
Feeling well. Eager for discharge
Objective
Labs:
11/21/23 05:09
11/21/23 05:09
Labs
Hgb 13.9 g/dL (13.0-18.0) 11/21/23 05:09
Hct 38.5 % (39.0-52.0) L 11/21/23 05:09
Plt Count 196 10^3/uL (130-400) 11/21/23 05:09
APTT Cancelled 11/19/23 18:25
Sodium 138 mmol/L (135-145) 11/21/23 05:09
Potassium 4.1 mmol/L (3.5-5.1) 11/21/23 05:09
BUN 16 mg/dl (9-20) 11/21/23 05:09
Creatinine 0.7 mg/dL (0.7-1.3) 11/21/23 05:09
Glucose 99 mg/dl (70-99) 11/21/23 05:09
Troponins
11/18/23 11/18/23 11/18/23
17:21 23:00 23:06
Troponin I 1.370 H* Cancelled 3.480 H* D
11/19/23 11/19/23 11/19/23
03:49 10:57 18:24
Troponin I 5.620 H* D 6.610 H* 15.200 H* D
11/20/23
04:15
Troponin I 10.100 H*
Vital Signs and I&O:
Vital Signs
Temp Pulse Resp BP Pulse Ox
98.6 F 68 16 161/90 99
11/21/23 07:36 11/21/23 08:00 11/21/23 07:36 11/21/23 07:38 11/21/23 07:38
Vital Signs
Temp Pulse Resp BP Pulse Ox
98.6 F 68 16 161/90 99
11/21/23 07:36 11/21/23 08:00 11/21/23 07:36 11/21/23 07:38 11/21/23 07:38
Intake & Output
11/19/23 11/20/23 11/21/23 11/22/23
07:59 07:59 07:59 07:59
Intake Total 82 / 82 798 / 798
Output Total 200 / 200
Balance -118 / -118 798 / 798
Physical Exam
Physical Exam
GEN: No distress, awake, alert, oriented x3. Sitting in chair
HEENT: supple, anicteric, mmm, EOMI
LUNGS: CTA bilaterally, no wheezes/rales
CV: Reg, S1/S2, no murmur
ABD: soft, BS+, NT/ND
EXT: No cyanosis, clubbing, edema
NEURO: Gross non-focal
SKIN: Warm, pink, dry. No rash. Right wrist site with mild hakeem-incisional ecchymoses, soft, no edema
[2023-11-21 10:23] VITALS: BP 146/87
[2023-11-21] MEDS: NORVASC 5 MG PO (10:23)
[2023-11-21 11:33] VITALS: BP 162/83
[2023-11-21 11:36] VITALS: BMI 28.5
--- NOTE | 2023-11-21 13:16 | W.PN.HOSP.TC ---
Addendum entered and electronically signed by Nahid Lopez MD 11/21/23 16:48:
[id number]
Original Note:
Today's Communication/Plan
-
Continue aspirin, Brilinta, Lipitor, Cozaar, Norvasc
Cardiac rehab
Outpatient PCP, cards f/u
Assessment / Plan
Assessment / Plan
General: Other (73y M in no acute distress.)
HEENT: Moist mucous membranes and PERRLA
Respiratory: Clear; No Wheezes, Rales or Rhonchi
Cardiac: S1/S2 and Bradycardia; No Murmur
GI: Soft, Non Tender, Non Distended and Normal Bowel Sounds
Musculoskeletal: No Clubbing, No Cyanosis and No Edema
Neuro: AO x 3
A/P: Patient is a 73y M with PMH significant for hypertension who presents to ED complaining of chest pain.
Chest Tightness
ACS
NSTEMI
Hyperlipidemia
� Currently chest pain-free, although presented with chest pressure throughout the week
- peak trop 15.2
-Status post RCA PCI. Residual LAD iFR negative
Continue aspirin, Brilinta, Lipitor, Cozaar, Norvasc
Cardiac rehab
Outpatient cardiac follow-up arranged
� Echo with no wall motion abnormality, EF 60%
� Change to atorvastatin
� D-dimer mildly elevated, doubt PE at this time, not hypoxic, nor tachycardic and with elevated troponins and symptoms, suspect ACS versus less likely PE.
Benign Hypertension
- Hold amlodipine acutely.
- Cont Continue losartan with holding parameters.
DVT Prophylaxis: HSQ
Code Status: Full
More than 30 minutes spent in discharge including
Final examination of the patient
Summarizing hospital stay
Instructions for continuing care to all relevant caregivers
Preparation of discharge records, prescriptions, and referral forms
Total time spent (35 in minutes):
Anticipated Discharge: Today
Subjective/Interval History
-
Date of Service: November 21, 2023
no pci yesterday
Objective Data
-
Labs:
Laboratory Results
11/21/23
05:09
WBC 8.1
Hgb 13.9
Hct 38.5 L
Plt Count 196
Sodium 138
Potassium 4.1
Chloride 101
Carbon Dioxide 28
BUN 16
Creatinine 0.7
Glucose 99
Calcium 9.3
Vital Signs:
Vital Signs
Temp Pulse Resp BP Pulse Ox
97.6 F 51 16 146/87 99
11/21/23 11:32 11/21/23 11:32 11/21/23 11:32 11/21/23 10:23 11/21/23 11:32
I&O
11/20/23 11/21/23 11/22/23
06:59 06:59 06:59
Intake Total 798 / 798
Balance 798 / 798
Review of Systems
-
History Source: Patient
All other systems: Not reviewed unless documented
Data Reviewed
-
Medical Tests (Nuc Med, Echo etc): Report Reviewed by me
Labs: Labs Reviewed by me
--- NOTE | 2023-11-21 13:33 | PTCARENOTE ---
Discharge teaching completed, patient and present, verbalized understanding. IV and telemetry removed. will transport home today
--- NOTE | 2023-11-21 13:49 | PTCARENOTE ---
Patient discharged to the main lobby in a wheelchair
--- NOTE | 2023-11-21 13:51 | W.DS.TRANS ---
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
-
Discharge Instructions:
Discharge Diagnosis/Procedures Non ST elevation MS post Angioplasty and stent
to Right Coronary artery (11/18)
Diet Low Cholesterol,Low Fat
Activity Other activity
Additional Activity no heavy lifting greater than 10 pounds for 1
week!
Driving Restrictions No driving for 24 hours
Other Services Cardiac Rehab
Instructions:
Stand-Alone Forms: DC Instructions- Cath/EP Lab
Changes to Home Medications: Yes
Discharge Medications:
DC Medications w/original date entered in [facility]
amlodipine 5 mg tablet (Norvasc) 5 mg PO DAILY blood pressure 11/18/23
cholecalciferol (vitamin D3) 25 mcg (1,000 unit) tablet (Vitamin D3) 25 mcg PO DAILY supplement 11/18/23
losartan 25 mg tablet 25 mg PO DAILY blood pressure 11/18/23
aspirin 81 mg chewable tablet 81 mg PO DAILY #90 tabs 11/19/23
atorvastatin 40 mg tablet 40 mg PO QPM #90 tabs 11/19/23
ticagrelor 90 mg tablet (Brilinta) 90 mg PO BID #180 tabs 11/19/23
Home Medication Changes
losartan 25 mg tablet 25 mg PO DAILY blood pressure 11/18/23
aspirin 81 mg chewable tablet 81 mg PO DAILY #90 tabs 11/19/23
atorvastatin 40 mg tablet 40 mg PO QPM #90 tabs 11/19/23
ticagrelor 90 mg tablet (Brilinta) 90 mg PO BID #180 tabs 11/19/23
Pending Results: No
== END 2023-11-21 14:03 | disposition home or self-care (01) | DRG 322 ==
LOC: IVU 21:37
PROVIDERS: Internal Medicine Interventional Cardiology; Nurse Practitioner; Nurse Practitioner Adult Health; ADMITTING PHYSICIAN Hospitalist; ATTENDING PHYSICIAN Internal Medicine; EMERGENCY PHYSICIAN Emergency Medicine; FAMILY PHYSICIAN Nurse Practitioner Family; OTHER PHYSICIAN Internal Medicine Cardiovascular Disease
PROC: 027034Z Dilation of Coronary Artery, One Artery with Drug-eluting Intraluminal Device, Percutaneous Approach (ICD-10-PCS; 2023-11-19)
PROC: B2151ZZ Fluoroscopy of Left Heart using Low Osmolar Contrast (ICD-10-PCS; 2023-11-19)
PROC: 4A023N7 Measurement of Cardiac Sampling and Pressure, Left Heart, Percutaneous Approach (ICD-10-PCS; 2023-11-19)
PROC: B2111ZZ Fluoroscopy of Multiple Coronary Arteries using Low Osmolar Contrast (ICD-10-PCS; 2023-11-19)
DX: I21.4 Non-ST elevation (NSTEMI) myocardial infarction (principal); I47.19 Other supraventricular tachycardia; I10 Essential (primary) hypertension; I25.10 Atherosclerotic heart disease of native coronary artery without angina pectoris; E78.00 Pure hypercholesterolemia, unspecified; F17.290 Nicotine dependence, other tobacco product, uncomplicated; R73.9 Hyperglycemia, unspecified; Z79.82 Long term (current) use of aspirin; Z79.899 Other long term (current) drug therapy; Z88.0 Allergy status to penicillin
CPT/HCPCS: 80048; 80053; 80061; 83036; 83735; 84484; 85025; 85027; 85347; 85379; 85730; 93005; 93306; 93454; 93458; 93799; 96374; 99285; C1725; C1769; C1874; C1894; C9600; Q9967

== ENCOUNTER 2023-12-06 16:46 | Outpatient (RCR) | payer MEDICARE, BC, SELFPAY | END 2023-12-06 23:59 | disposition home or self-care (01) | LOC: CRHB 16:46 | PROVIDERS: ATTENDING PHYSICIAN Internal Medicine Cardiovascular Disease | DX: I25.10 Atherosclerotic heart disease of native coronary artery without angina pectoris (principal); Z95.5 Presence of coronary angioplasty implant and graft; I25.2 Old myocardial infarction | CPT/HCPCS: G0422; G0423 ==

== ENCOUNTER 2024-01-09 08:46 | Outpatient (RCR) | payer MEDICARE, BC, SELFPAY | END 2024-01-09 23:59 | disposition home or self-care (01) | LOC: CRHB 08:46 | PROVIDERS: ATTENDING PHYSICIAN Internal Medicine Cardiovascular Disease | DX: I25.10 Atherosclerotic heart disease of native coronary artery without angina pectoris (principal); Z95.5 Presence of coronary angioplasty implant and graft; I25.2 Old myocardial infarction | CPT/HCPCS: G0422; G0423 ==

== ENCOUNTER 2024-02-08 08:40 | Outpatient (RCR) | payer MEDICARE, BC, SELFPAY | END 2024-02-08 23:59 | disposition home or self-care (01) | LOC: CRHB 08:40 | PROVIDERS: ATTENDING PHYSICIAN Internal Medicine Cardiovascular Disease | DX: I25.10 Atherosclerotic heart disease of native coronary artery without angina pectoris (principal); Z95.5 Presence of coronary angioplasty implant and graft; I25.2 Old myocardial infarction | CPT/HCPCS: G0422; G0423 ==

== ENCOUNTER 2024-03-10 08:45 | Outpatient (RCR) | payer MEDICARE, BC, SELFPAY | END 2024-03-10 23:59 | disposition home or self-care (01) | LOC: CRHB 08:45 | PROVIDERS: ATTENDING PHYSICIAN Internal Medicine Cardiovascular Disease | DX: I21.4 Non-ST elevation (NSTEMI) myocardial infarction (principal); Z95.5 Presence of coronary angioplasty implant and graft; I25.2 Old myocardial infarction; I25.10 Atherosclerotic heart disease of native coronary artery without angina pectoris | CPT/HCPCS: 36415; 80061; G0422; G0423 ==

== ENCOUNTER 2024-03-13 13:06 | Outpatient (RCR) | payer MEDICARE, BC, SELFPAY | END 2024-03-13 23:59 | disposition home or self-care (01) | LOC: CRHB 13:06 | PROVIDERS: ATTENDING PHYSICIAN Internal Medicine Cardiovascular Disease | DX: I21.4 Non-ST elevation (NSTEMI) myocardial infarction (principal); I25.10 Atherosclerotic heart disease of native coronary artery without angina pectoris; Z95.5 Presence of coronary angioplasty implant and graft; I25.2 Old myocardial infarction | CPT/HCPCS: G0422; G0423 ==